=== PATIENT | female | born 1950 ===

== ENCOUNTER 2024-02-13 16:12 | Emergency (ER) | payer MEDICARE, OTHER, SELFPAY ==
[2024-02-13 16:20] VITALS: BP 137/92
[2024-02-13 16:46] LABS: % Basophils 0.3 % (0-2); % Eosinophils 0.7 % (0-6); % Immature Granulocytes 0.2 % (0-0.5); % Lymphocytes 36.6 % (20.5-51.1); % Monocytes 8.1 % (1.7-9.3); % Neutrophils 54.1 % (42.2-75.2); Absolute Lymphocytes 2.3 10^3/uL (1.2-3.4); Absolute Monocytes 0.5 10^3/uL (0.1-0.6); Absolute Neutrophils 3.3 10^3/uL (1.4-6.5); Hemoglobin 15.5 g/dL (12.0-16.0); Mean Corpuscular Hgb 31.9 pg (27.0-31.0); Mean Corpuscular Volume 96.7 fL (81.0-99.0); Mean Platelet Volume 9.7 fL (7.4-10.4); Nucleated Red Blood Cells % 0 %; Platelet Count 188 10^3/uL (130-400); Red Blood Cell Count 4.86 10^6/uL (4.20-5.40); Red Cell Dist. Width 11.9 % (11.5-14.5); White Blood Cell Count 6.1 10^3/uL (4.8-10.8)
[2024-02-13 17:08] LABS: Troponin I < 0.012 ng/ml
[2024-02-13 17:18] LABS: ALT (SGPT) 22 U/L (0-35); AST (SGOT) 28 U/L (14-36); Albumin 4.8 g/dl (3.5-5.0); Alkaline Phosphatase 78 U/L (38-126); Blood Urea Nitrogen 20 mg/dl (7-17); Calcium 10.7 mg/dl (8.4-10.2); Carbon Dioxide 25 mmol/L (22-30); Chloride 105 mmol/L (98-107); Glucose 110 mg/dl (70-99); Sodium 142 mmol/L (135-145); Total Bilirubin 0.5 mg/dl (0.2-1.3); Total Protein 7.3 g/dl (6.3-8.2); eGFR > 60.00
--- NOTE | 2024-02-13 18:09 | ED.GENMED ---
History of Present Illness
General
Chief Complaint: Heart Rate Problem
Time Seen by Provider: 02/13/24 18:06
History of Present Illness
History of Present Illness:
TIME OF INITIAL ENCOUNTER: 6:20 PM
HPI: The patient is due to palpitations. 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 She was placed on Cardizem and Eliquis at that time. They decreased her Cardizem dosing down to 120
but had been 180 in the past. She had been doing fairly well when she was at 180. She had some vague chest discomfort earlier in the day but the bigger sensation with the palpitations almost to the point that she fell like she was going to pass
out. Currently she no longer feels that she is to pass out. She feels spontaneously improved.
EXAM:
GENERAL: Well appearing in no distress
HEENT: Moist oral mucosa
CARDIOVASCULAR: No murmurs, normal heart rate, regular rhythm, No chest wall tenderness, she is sinus with rates in the 80s on the monitor
PULMONARY: No respiratory distress, breath sounds are clear and equal
ABDOMEN: Soft with no peritoneal signs, no tenderness
NEUROLOGIC: Excellent strength all extremities, no coordination deficits
PSYCHIATRIC: Appropriate mental status, normal insight and judgement
EXTREMITIES: Nontender, no edema, moves all extremities equally
SKIN: No rash, no lesions
NUMBER AND COMPLEXITY OF PROBLEMS ADDRESSED AT THE ENCOUNTER
� Chronic conditions affecting care: Atrial flutter/fibrillation, asthma, connective tissue disorder
� Acute Exacerbation and/or Progression of Chronic Illness: This is an acute but recurrent problem
� Differential Diagnosis includes: Recurrence of atrial dysrhythmia, sinus tachycardia, dehydration, HOWARD, electrolyte abnormality
AMOUNT AND/OR COMPLEXITY OF DATA TO BE REVIEWED AND ANALYZED
� I performed an independent evaluation of and my interpretation is:
EKG: Sinus 106, first-degree AV block, normal axis, nonspecific abnormality, no old to compare
CT:
X-rays:
Laboratory Studies: CBC and chemistries unremarkable, troponin less than 0.012
Other:
� Review of other/old records: No old records available for review in [facility]
� Clinical information was obtained by an independent historian: None needed
� Prescriptions/Medications Considered but not given: Considered giving prescription for Cardizem 180 mg over the patient already has it at home
� Further testing considered but not performed:
RISK OF COMPLICATIONS AND/OR MORBIDITY OR MORTALITY OF PATIENT MANAGEMENT
� Social determinants of health affecting care: Lives at home
� Discussion with other providers:
� Escalation of care including admission/observation vs risk of discharge considered: The patient spontaneously feels improved. Her initial EKG was sinus with a rate of 106 but currently as I evaluated the patient, her heart
rate was 88 with a sinus rhythm. She questioned about switching to a beta-mal but ultimately we decided to just have her follow-up with her access coordinator, Dr. Falcon, at [place]. She has remained sinus throughout her stay in the emergency
department.
ANY OTHER UPDATES:
Phy Exam
Physical Exam
Physical Exam:
See HPI
Course
Orders/Labs/Results
Orders:
Orders
02/13/24 16:14
EKG [Electrocardiogram (*1)] Urgent
Reason for Study: Palpitations
EKG- Treatment ONCE
02/13/24 16:34
Complete Blood Count/With Diff Urgent
Comprehensive Metabolic Panel Urgent
Troponin I Urgent
Abnormal Lab Results
02/13/24
16:34
MCH 31.9 H pg
(27.0-31.0)
BUN 20 H mg/dl
(7-17)
Glucose 110 H mg/dl
(70-99)
Calcium 10.7 H mg/dl
(8.4-10.2)
02/13/24 16:34
02/13/24 16:34
Vital Signs
Initial and Last Documented VS:
Initial Vital Signs
Temp Pulse Resp BP Pulse Ox
98.2 F 114 18 137/92 97
02/13/24 16:20 02/13/24 16:20 02/13/24 16:20 02/13/24 16:20 02/13/24 16:20
Last Documented Vital Signs
Temp Pulse Resp BP Pulse Ox
98.2 F 92 21 137/91 99
02/13/24 16:20 02/13/24 18:16 02/13/24 18:16 02/13/24 18:15 02/13/24 18:19
*Critical Care Note
Total Time (30-74mins, 75-104mins- exclusive of procedures): Not Applicable
ED Attending Note
-
Portions of this chart may have been created with voice recognition software.� Occasional wrong word or��sound alike� substitutions may have occurred due to the inherent limitations of voice recognition software.
Discharge Plan
Departure
Patient Disposition: Home (Routine Discharge)
Date of Disposition: 02/13/24
Time of Disposition: 18:22
Patient with high blood pressure during this ER visit?: Yes
Discharge Problem:
Palpitations
Instructions: Palpitations (DC)
Activity Restrictions/Additional Instructions:
Your initial EKG shows a sinus tachycardia with a rate of 106. Cardiac blood work looking for signs of heart attack was negative. Other basic blood work is normal. As we discussed, you can consider increasing your Cardizem dosing back up to 180
mg. Follow-up with Dr. Falcon. Return here if worse or other concerns.
Interventions
Interventions:
*Risk Screen - Suicide Last Done: 02/13/24 18:19
*General Assessment Last Done: 02/13/24 18:19
*Neglect/Abuse Screening Last Done: 02/13/24 18:19
ED- Fall Risk Assessment Last Done: 02/13/24 18:19
*ED COVID-19 Vaccine History Last Done: 02/13/24 16:24
*Nursing Disposition Last Done: 02/13/24 18:42
ED- Cardiac Assessment Last Done: 02/13/24 18:19
ED- Pulmonary Assessment Last Done: 02/13/24 18:19
Discharge Date and Time
Discharge Date/Time: 02/13/24 18:45
Print Language: ROMANIAN
[2024-02-13 18:15] VITALS: BP 137/91; BMI 22.7
== END 2024-02-13 18:45 | disposition home or self-care (01) ==
LOC: EMR 16:12
PROVIDERS: Emergency Medicine; EMERGENCY PHYSICIAN Emergency Medicine
DX: R00.2 Palpitations (principal); R07.89 Other chest pain
CPT/HCPCS: 99284; 80053; 84484; 85025; 93005